=== PATIENT | male | born 1985 | race Native Hawaiian/Other Pacific Islander ===

== ENCOUNTER 2016-06-02 18:44 | Outpatient (CLI) | payer BC ==
[~2016-06-02 18:44] MED LIST: B-125000 MC1 SL; CARAFATE1 GM/10 ML PO; CRANBERRY125 MG PO; CYCL10TA35 PO; FERROUS SULF325 M1 PO; FETZIMA40 MG PO; HYDR10TA47 PO; HYDR2TAB12 PO; IRON325 MG PO; KETO10TA34 PO; LOSA50TA8 PO; MULT VITAMI1 PO; MULTIVITAMI1 PO; NEXIUM40 M1 PO; OXYC5TAB53 PO; PANT40TA PO; TAMS0.4C PO; TRAM50TA PO; VITAMIN D1000 UNIT PO; XANAX2 MG PO; ZOLP10TA2 PO
== END 2016-06-02 22:09 | disposition home or self-care (01) ==
LOC: INF 18:44 → ED 18:44
DX: N08 Glomerular disorders in diseases classified elsewhere (principal)
CPT/HCPCS: 96360; 96361; 96374; 96375; J1885; J2175; J2550

== ENCOUNTER 2016-07-23 20:11 | Observation (INO) | payer BC ==
[~2016-07-23] VITALS: Ht 182.9 cm; Wt 120.9 kg
[2016-07-23 23:18] LABS: PLATELET COUNT 274 K/uL (142-355)
[2016-07-23 23:37] LABS: SODIUM 135 mmol/L (136-145)
[2016-07-24 04:00] VITALS: BP 109/76; TEMP 97.5
[2016-07-24 06:16] VITALS: BP 157/93; TEMP 98.5; Ht 182.9 cm; Wt 120.9 kg
[2016-07-24 08:00] VITALS: BP 149/91; TEMP 97.8
[2016-07-24 12:00] VITALS: BP 180/92; TEMP 98.1
[2016-07-24 16:00] VITALS: BP 130/97; TEMP 97.8
[2016-07-24 20:00] VITALS: BP 129/87; TEMP 98.2
[2016-07-25] VITALS: BP 118/74; TEMP 98
[2016-07-25 04:00] VITALS: BP 144/87; TEMP 97.9
[2016-07-25 08:00] VITALS: BP 138/80; TEMP 97.9
== END 2016-07-25 10:50 | disposition home or self-care (01) ==
LOC: MED/SURG 20:11
PROVIDERS: ADMIT Family Medicine
DX: E86.0 Dehydration (principal); R11.2 Nausea with vomiting, unspecified
CPT/HCPCS: 36591; 80053; 80307; 81000; 85027; 96360; 96361; 99220; G0378; G0379; G0479; J1642; J2060; J2405